=== PATIENT | male | born 1990 | race Caucasian/White ===

== ENCOUNTER 2016-11-19 03:06 | Emergency (ER) | payer OTHER ==
[~2016-11-19] VITALS: Ht 172.7 cm; Wt 90.7 kg
[2016-11-19] MEDS ORDERED: AMOX500C PO (04:14)
[2016-11-19] MEDS ORDERED: HYDR-971 PO (04:14)
--- NOTE | 2016-11-19 04:14 | PHYS DOC ---
Past Medical History Past Medical History: No Pertinent History Past Surgical History: No Surgical History Alcohol Use: Occasionally Drug Use: None Adult General Chief Complaint Chief Complaint: TONGUE SWELLING/INJURY HPI HPI Patient is a 26 year old male who presents with complaint of sore throat. Patient states his symptoms started suddenly yesterday and have worsened throughout the day. Patient states he has been getting fevers and is having significant difficulty with sore throat and swallowing. Patient is currently able to tolerate his own oral secretions. Patient states he is able to tolerate oral fluids and states that it is very painful when he swallows. Patient denies any sick contacts. Patient took ibuprofen to help with symptoms and states that he experienced minimal relief. Patient rates pain currently as 9 out of 10. Patient denies any significant past medical history. Review of Systems Review of Systems Constitutional: Fever, body aches [] Eyes: Denies change in visual acuity, redness, or eye pain [] HENT: Sore throat [] Respiratory: Denies cough or shortness of breath [] Cardiovascular: Denies chest pain or edema [] GI: Denies abdominal pain, nausea, vomiting, bloody stools or diarrhea [] : Denies dysuria or hematuria [] Musculoskeletal: Denies back pain or joint pain [] Integument: Denies rash or skin lesions [] Neurologic: Denies headache, focal weakness or sensory changes [] Current Medications Current Medications Current Medications Medications (Trade) Dose Ordered Sig/[facility] Start Time Stop Time Status Last Admin Dose Admin Acetaminophen/ Hydrocodone Bitart (Lortab 7.5/325) 1 tab 1X ONCE 11/19/16 04:30 11/19/16 04:31 DC 11/19/16 04:20 1 TAB Amoxicillin (Amoxil) 1,000 mg 1X ONCE 11/19/16 04:30 11/19/16 04:31 DC 11/19/16 04:20 1,000 MG Dexamethasone Sodium Phosphate (Decadron) 12 mg 1X ONCE 11/19/16 04:30 11/19/16 04:31 DC 11/19/16 04:22 12 MG Allergies Allergies Allergies Coded Allergies Type Severity Reaction Last Updated Verified No Known Drug Allergies 11/19/16 No Physical Exam Physical Exam Constitutional: Alert, febrile, appears in moderate discomfort. [] HENT: Normocephalic, atraumatic, bilateral external ears normal, oropharynx erythematous, tonsils appears swollen with exudates present, no oral exudates, nose normal. [] Eyes: PERRLA, EOMI, conjunctiva normal, no discharge. [] Neck: Normal range of motion, tender anterior cervical lymphadenopathy present bilaterally, supple, no stridor. [] Cardiovascular:Heart rate regular rhythm, no murmur [] Lungs & Thorax: Bilateral breath sounds clear to auscultation [] Abdomen: Bowel sounds normal, soft, no tenderness, no masses, no pulsatile masses. [] Skin: Warm, dry, no erythema, no rash. [] Back: No tenderness, no CVA tenderness. [] Extremities: No tenderness, no cyanosis, no clubbing, ROM intact, no edema. [] Neurologic: Alert and oriented X 3, normal motor function, normal sensory function, no focal deficits noted. [] Current Patient Data Vital Signs Vital Signs Date Time Temp Pulse Resp B/P Pulse Ox O2 Delivery O2 Flow Rate FiO2 11/19/16 04:24 104 16 126/63 96 Room Air 11/19/16 03:20 99.1 99.1 EKG EKG Not performed [] Radiology/Procedures Radiology/Procedures Not performed [] Course & Med Decision Making Course & Med Decision Making Pertinent Labs and Imaging studies reviewed. (See chart for details) The patient's rapid strep test was negative and the emergency department, however I have high clinical suspicion the patient may infect have strep pharyngitis due to clinical findings. The patient was be treated empirically with amoxicillin for 10 day course. Patient was given IM Decadron and oral Burton in the emergency department for symptoms. Advised patient to follow-up in 3-5 days with his primary doctor and return to emergency department for any worsening symptoms. Patient voiced understanding and in agreement with treatment plan. Dragon Disclaimer Dragon Disclaimer This electronic medical record was generated, in whole or in part, using a voice recognition dictation system. Departure Departure Impression: Primary Impression: Acute pharyngitis Disposition: HOME, SELF-CARE Condition: IMPROVED Referrals: NO PCP (PCP) Patient Instructions: Viral and Bacterial Pharyngitis Additional Instructions: Continue on amoxicillin at home for treatment of your pharyngitis. Follow-up with primary doctor in 3-5 days if symptoms are not improving and return to emergency department for any worsening symptoms. Scripts Hydrocodone/Apap 5-325 (Burton 5-325 Tablet)1 Each Tablet1 Tab PO Q4HRS PRN PAIN #20 TAB Ref 0 Prov:CARLOS ANAND MD 11/19/16 Amoxicillin 500 Mg Capsule1,000 Mg PO BID #40 CAP Ref 0 Prov:CARLOS ANAND MD 11/19/16 Problem Qualifiers Primary Impression: Acute pharyngitis Pharyngitis/tonsillitis etiology: unspecified etiology Qualified Code: J02.9 - Acute pharyngitis, unspecified CARLOS ANAND MD Nov 19, 2016 04:14
[2016-11-19 04:24] VITALS: BP 126/63
[2016-11-19] MEDS ORDERED: DEXAMETHASONE SOD PHOS 20 MG/5 ML VIAL. IM ONE (04:30)
[2016-11-19] MEDS ORDERED: HYDROCODONE/APAP 7.5/325MG TABLET. PO ONE (04:30)
[2016-11-19] MEDS ORDERED: AMOXICILLIN 250 MG CAPSULE. PO ONE (04:30)
[2016-11-19 09:15] LABS: NEGATIVE OBC STREP NEG; POSITIVE OBC STREP POS
--- NOTE | 2016-11-22 08:53 | VNOTE ---
CALL BACK NOTE CALL BACK Microbiology 11/19/16 Throat Culture - Final, Complete 11/19/16 - Final, Complete 11/19/16 - Final, Complete Patient's throat culture was positive for group A strep. Patient was placed on amoxicillin at discharge. No further calls or any change of medications needed. ARSALAN HUYNH APRN Nov 22, 2016 08:53
== END 2016-11-19 04:39 | disposition home or self-care (01) ==
LOC: ER 03:06
DX: J02.0 Streptococcal pharyngitis (principal)
CPT/HCPCS: 87070; 87880; 96372; 99283; J1100